=== PATIENT | female | born 1955 | race Caucasian/White ===

== ENCOUNTER → 2016-03-04 | Outpatient (CLI) | payer MEDICAID ==
[~2016-03-04] MED LIST: ASPIRIN 325MG325 MG PO; BACTRIM DS 8001 TA1 PO; CALTRATE 600 +1 TA1 PO; FLEXERIL10 MG PO; NAPROSYN 500MG500 MG PO; NORCO1 TAB PO; PREDNISONE10 M1 PO
--- NOTE | 2016-03-04 16:13 | RADIOLOGY REPORT PS360 ---
HIP LT 2-3V W/PELVIS IF PERFOR HISTORY: Follow-up hip replacement LT ARTIFICIAL HIP JOINT COMPARISON: 02/21/2016 FINDINGS: Bipolar prosthesis is present. There is no evidence of dislocation. There remains a faint curvilinear lucency at the base of the lesser trochanter consistent with nondisplaced fracture not significant change. No other significant anomalies. IMPRESSION: 1. No change in good position of the left hip prosthesis. 2. Nondisplaced fracture along the superior aspect of the lesser trochanter unchanged
== END ==
LOC: RAD 14:37
DX: Z96.642 Presence of left artificial hip joint (principal)